=== PATIENT | female | born 1960 | race Caucasian/White ===

== ENCOUNTER → 2016-06-03 | Outpatient (CLI) | payer OTHER ==
[~2016-06-03] MED LIST: ASPEC325 PO; ISOS30TA3 PO; METO50TA7 PO; NTRGSL/4; SIMV40TA2 PO
--- NOTE | 2016-06-03 15:30 | MAMMOGRAPHY REPORT ---
BILATERAL DIGITAL SCREENING MAMMOGRAM TOMOSYNTHESIS WITH CAD: 06/03/2016 CLINICAL HISTORY: Routine screening. Patient has no complaints. TECHNIQUE: Breast tomosynthesis in addition to standard 2D mammography was performed. Current study was also evaluated with a Computer Aided Detection (CAD) system. COMPARISON: Comparison is made to exam dated: 06/29/2006. BREAST COMPOSITION: There are scattered areas of fibroglandular density in both breasts. FINDINGS: There is a lobulated 7 mm mass with partially circumscribed and partially obscured margin s seen within the right 6:00 breast, not clearly evident on the prior 2006 exam. Recommend ultrasou nd and possible additional spot compression tomosynthesis views for further evaluation. The remainder of both breasts demonstrate no suspicious masses, calcifications, or areas of architec tural distortion. Scattered bilateral benign-appearing calcifications are noted. IMPRESSION: ACR BI-RADS CATEGORY 0: INCOMPLETE EVALUATION: NEED ADDITIONAL IMAGING EVALUATION Right 6:00 breast mass, for which additional imaging evaluation is recommended. The patient will be called to schedule an appointment. Approximately 10% of breast cancers are not detected with mammography. A negative mammographic repor t should not delay biopsy if a clinically suggestive mass is present. Daisy العلي M.D. ah/:06/03/2016 15:03:30 Homemaker Companion: Bernadette REYNA(William)(M), [facility] letter sent: Addl Imaging 0 BI-RADS Code: ACR BI-RADS Category 0: Incomplete Evaluation: Need Additional Imaging Evaluation
== END | disposition home or self-care (01) ==
LOC: C.MAMM 09:45
PROVIDERS: ATTEND Family Medicine
DX: Z12.31 Encounter for screening mammogram for malignant neoplasm of breast (principal); N63 Unspecified lump in breast

== ENCOUNTER 2017-03-10 16:14 | Inpatient (IN) | payer OTHER ==
[~2017-03-10] VITALS: Ht 170.2 cm; Wt 87.7 kg
[2017-03-10 17:20] LABS: BASO % 0.4 %; BASO ABS # 0.02 K/uL (0-0.2); COMPLETE YES; EOS % 3.1 %; HEMATOCRIT 42.3 % (37-47); LYMPH % 36.7 %; LYMPH ABS # 1.78 K/uL (1.2-3.4); MEAN CELL VOLUME 95.9 fL (80-100); MEAN CORPUSCULAR HEMOGLOBIN 32.7 pg (25-34); MEAN PLATELET VOLUME 10.6 fL (7.4-10.4); MONO % 9.3 %; NEUT % 50.5 %; PLATELET COUNT 195 K/uL (130-400); RED BLOOD COUNT 4.41 M/uL (4.2-5.4); WHITE BLOOD COUNT 4.85 K/uL (4.8-10.8)
--- NOTE | 2017-03-10 17:29 | DIAGNOSTIC IMAGING REPORT ---
CHEST ONE VIEW PORTABLE HISTORY: 56 years-old Female CHEST PAIN acute atypical chest pain COMPARISON: Portable chest radiograph 06/27/2007 TECHNIQUE: Portable AP view of the chest FINDINGS: Cardiac silhouette is upper limits of normal. Atherosclerosis of the aorta. No pneumothorax, pleural effusion, focal airspace consolidation or overt pulmonary edema. Subsegmental linear left basilar opacities suggest atelectasis. Degenerative changes are seen within the shoulders and spine. Postsurgical or posttraumatic changes are seen involving the distal clavicles bilaterally. IMPRESSION: No acute cardiopulmonary process. The above report was generated using voice recognition software. It may contain grammatical, syntax or spelling errors. Electronically signed by: Aleksander Michel M.D. 03/10/2017 5:28 PM Dictated Date/Time: 03/10/2017 5:27 PM
[2017-03-10 17:34] LABS: PARTIAL THROMBOPLASTIN RATIO 0.8; PROTHROMBIN TIME (PATIENT) 10.1 SECONDS (9.0-12.0)
[2017-03-10 17:42] LABS: ALT/SGPT 25 U/L (12-78); AST/SGOT 19 U/L (15-37); BLOOD UREA NITROGEN 16 mg/dl (7-18); BUN/CREATININE RATIO 16.9 (10-20); CALCIUM 8.9 mg/dl (8.5-10.1); CARBON DIOXIDE 29 mmol/L (21-32); CHLORIDE 106 mmol/L (98-107); CREATININE 0.96 mg/dl (0.60-1.20); GLUCOSE 78 mg/dl (70-99); POTASSIUM 3.7 mmol/L (3.5-5.1); SODIUM 140 mmol/L (136-145)
--- NOTE | 2017-03-10 17:42 | EMERGENCY ROOM VISIT NOTE ---
ED Visit Note First contact with patient: 16:34 The patient was seen and examined with BILLY Mckeon. I agree with the history, physical and findings. Please see the note for disposition and details.
[2017-03-10 17:44] LABS: ALKALINE PHOSPHATASE 112 U/L (45-117); CKMB/CK RATIO 1.1 (0-3.0)
[2017-03-10] MEDS ORDERED: MoRPHine SULFATE 2 MG/ML CARP IV PRN (21:30)
[2017-03-10] MEDS ORDERED: MAGNESIUM HYDROXIDE SUSP 30 ML UDC PO PRN (21:30)
[2017-03-10] MEDS ORDERED: NITROGLYCERIN 0.4 MG SL PER TAB CHARGE SL PRN (21:30)
[2017-03-10] MEDS ORDERED: ACETAMINOPHEN 325 MG TAB PO PRN (21:30)
[2017-03-10] MEDS ORDERED: ONDANSETRON INJ 2 MG/ML 2 ML VIAL IV PRN (21:30)
[2017-03-10] MEDS ORDERED: ALUMINUM/MAGNESIUM/SIMETH (MAALOX MAX) 30 ML UDC PO PRN (21:30)
[2017-03-10] MEDS ORDERED: HEPARIN 25000 UNIT/500 ML D5W ONE (21:59)
--- NOTE | 2017-03-10 22:14 | EMERGENCY ROOM VISIT NOTE ---
History First contact with patient: 16:34 Chief Complaint: CHEST PAIN Stated Complaint: CHEST PAIN, DIZZINESS Nursing Triage Summary: pt c/o chest pain for short period of time. sob and chest palpatations. History of Present Illness The patient is a 56 year old female who presents to the Emergency Room with complaints of right-sided chest pain and shortness of breath. The patient reports that she was walking briskly at 10 AM this morning when she developed this discomfort. The patient reports that she then stopped to rest, and reported that the pain resolved within 3-5 minutes, but still had shortness of breath. After her pain resolved, she elects to go up and down steps to see if it made a difference, and again caused worsening chest discomfort and shortness of breath that improved with rest again. The patient has had a prior history of unstable angina. She was seen in our facility in July 2008 when she underwent a cardiac catheterization that was abnormal. She was seen by Dr. Nolan during that admission, and had an outpatient imaging test and stress test performed that were both normal. The patient reports that approximately one year later, she had a syncopal episode while flying, however her workup at that time was also normal. She otherwise denies any significant symptoms since that time. The patient reports that she has lost a lot of weight and has been trying to remain active and healthy. The patient denies any recent upper respiratory infections, sore throat or cough. The pain does not radiate into the neck, back or abdomen. She reports that her chest pain 7 years ago with left-sided. She does have a strong family history of coronary artery disease. She currently denies any chest pain on my exam. She also denied any nausea or diaphoresis with her episodes of chest pain. Review of Systems HEENT: Denies dizziness, visual problems, hearing loss, tinnitus. Denies difficulty swallowing or oral lesions. PULMONARY: Denies cough, sputum production or hemoptysis. CARDIOVASCULAR: Denies palpitations, dyspnea on exertion, orthopnea or peripheral edema. Otherwise see history of present illness. GASTROINTESTINAL: Denies diarrhea, constipation, nausea, vomiting, or abdominal pain. GENITOURINARY: Denies dysuria, frequency, urgency or nocturia. NEUROLOGIC: Denies history of epilepsy, CVA, TIA or chronic headaches. MUSCULOSKELETAL: Denies history of joint tenderness/swelling. SKIN: Denies rashes or lesions. PSYCHIATRIC: Denies history of depression or mental illness. ENDOCRINE: Denies history of diabetes or thyroid disorders. Past Medical/Surgical History Medical Problems: (1) Chest pain (2) Coronary Atherosclerosis Of [place] Coronary Vessel (3) History Of Tobacco Use (4) Hypercholesterolemia (5) Hypertension (6) Lumbago (7) Metrorrhagia Surgical Problems: (1) History of cardiac catheterization Family History FH: coronary artery disease FH: myocardial infarction Peripheral vascular disease Social History Smoking Status: Former Smoker Alcohol Use: occasionally Marital Status: Housing Status: lives with family Occupation Status: employed Current/Historical Medications No Active Prescriptions or Reported Meds Physical Exam Vital Signs Date Time Temp Pulse Resp B/P (MAP) Pulse Ox O2 Delivery O2 Flow Rate FiO2 03/10/17 22:02 69 16 139/97 98 03/10/17 19:45 68 20 03/10/17 19:30 67 23 03/10/17 19:15 68 17 03/10/17 19:00 61 19 03/10/17 18:08 68 18 158/78 99 Room Air 03/10/17 17:12 97 Room Air 03/10/17 17:12 97 Room Air 03/10/17 16:40 62 03/10/17 16:32 99 Room Air 03/10/17 16:16 36.4 63 18 169/100 99 Room Air Physical Exam CONSTITUTIONAL: Healthy and well nourished. Alert and oriented X 3 with positive affect. Patient does not appear in any acute distress on exam. HEENT: Normocephalic, atraumatic. Pupils equal, round and reactive. NECK: Full active range of motion without discomfort. No JVD or carotid bruits noted. RESPIRATORY: Clear to auscultation bilaterally with no wheezing, crackles, rhonchi or stridor. CARDIOVASCULAR: Regular rate and rhythm with no murmurs, rubs or gallops. GASTROINTESTINAL: Bowel sounds present in all quadrants. Soft and nontender to palpation. MUSCULOSKELETAL: Full range of motion of all joints without discomfort. No tenderness to palpation over the anterior chest wall or costochondral joints. INTEGUMENTARY: No rash or other significant dermatologic conditions noted. HEMATOLOGIC: No ecchymosis or petechiae noted. NEUROLOGIC: No focal neurologic deficits noted. Medical Decision & Procedures ER Provider Diagnostic Interpretation: My interpretation of an initial ECG shows a sinus bradycardia of [address] elevation or other conduction abnormalities. Repeat ECG approximately 3.5 hours later shows a sinus bradycardia of 58 bpm without any other acute changes noted. There is no ST elevations or depressions noted on either ECG. My interpretation of a portable chest x-ray does not show any consolidations, pneumothorax or cardiac prominence. Radiologist report is as follows: CHEST ONE VIEW PORTABLE HISTORY: 56 years-old Female CHEST PAIN acute atypical chest pain COMPARISON: Portable chest radiograph 06/27/2007 TECHNIQUE: Portable AP view of the chest FINDINGS: Cardiac silhouette is upper limits of normal. Atherosclerosis of the aorta. No pneumothorax, pleural effusion, focal airspace consolidation or overt pulmonary edema. Subsegmental linear left basilar opacities suggest atelectasis. Degenerative changes are seen within the shoulders and spine. Postsurgical or posttraumatic changes are seen involving the distal clavicles bilaterally. IMPRESSION: No acute cardiopulmonary process. Laboratory Results 03/10/17 17:10 Red Blood Count 4.41, Mean Corpuscular Volume 95.9, Mean Corpuscular Hemoglobin 32.7, Mean Corpuscular Hemoglobin Concent 34.0, Mean Platelet Volume 10.6, Neutrophils (%) (Auto) 50.5, Lymphocytes (%) (Auto) 36.7, Monocytes (%) (Auto) 9.3, Eosinophils (%) (Auto) 3.1, Basophils (%) (Auto) 0.4, Neutrophils # (Auto) 2.45, Lymphocytes # (Auto) 1.78, Monocytes # (Auto) 0.45, Eosinophils # (Auto) 0.15, Basophils # (Auto) 0.02 03/10/17 17:10 Test 03/10/17 17:10 03/10/17 19:04 White Blood Count 4.85 K/uL (4.8-10.8) Red Blood Count 4.41 M/uL (4.2-5.4) Hemoglobin 14.4 g/dL (12.0-16.0) Hematocrit 42.3 % (37-47) Mean Corpuscular Volume 95.9 fL (80-100) Mean Corpuscular Hemoglobin 32.7 pg (25-34) Mean Corpuscular Hemoglobin Concent 34.0 g/dl (32-36) Platelet Count 195 K/uL (130-400) Mean Platelet Volume 10.6 fL (7.4-10.4) Neutrophils (%) (Auto) 50.5 % Lymphocytes (%) (Auto) 36.7 % Monocytes (%) (Auto) 9.3 % Eosinophils (%) (Auto) 3.1 % Basophils (%) (Auto) 0.4 % Neutrophils # (Auto) 2.45 K/uL (1.4-6.5) Lymphocytes # (Auto) 1.78 K/uL (1.2-3.4) Monocytes # (Auto) 0.45 K/uL (0.11-0.59) Eosinophils # (Auto) 0.15 K/uL (0-0.5) Basophils # (Auto) 0.02 K/uL (0-0.2) RDW Standard Deviation 44.2 fL (36.4-46.3) RDW Coefficient of Variation 12.7 % (11.5-14.5) Immature Granulocyte % (Auto) 0.0 % Immature Granulocyte # (Auto) 0.00 K/uL (0.00-0.02) Prothrombin Time 10.1 SECONDS (9.0-12.0) Prothromb Time International Ratio 1.0 (0.9-1.1) Activated Partial Thromboplast Time 21.9 SECONDS (21.0-31.0) Partial Thromboplastin Ratio 0.8 D-Dimer 380 ug/L FEU (0-500) Anion Gap 5.0 mmol/L (3-11) Est Creatinine Clear Calc Drug Dose 73.9 ml/min Estimated GFR () 76.1 Estimated GFR (Non- 65.7 BUN/Creatinine Ratio 16.9 (10-20) Calcium Level 8.9 mg/dl (8.5-10.1) Total Bilirubin 0.4 mg/dl (0.2-1) Direct Bilirubin mg/dl (0-0.2) Aspartate Amino Transf (AST/SGOT) 19 U/L (15-37) Alanine Aminotransferase (ALT/SGPT) 25 U/L (12-78) Alkaline Phosphatase 112 U/L (45-117) Total Creatine Kinase 62 U/L (26-192) Creatine Kinase MB 0.7 ng/ml (0.5-3.6) Creatine Kinase MB Ratio 1.1 (0-3.0) Troponin I < 0.015 ng/ml (0-0.045) Total Protein 7.2 gm/dl (6.4-8.2) Albumin 3.4 gm/dl (3.4-5.0) Lipase 198 U/L (73-393) Chemistry Specimen Hemolysis Bedside Troponin I < 0.030 ng/ml (0-0.045) The above labs were reviewed. Repeat troponin 2 were normal. D-dimer was normal. Remaining labs are also grossly normal. ED Course Patient history and physical exam were performed. Nurse's notes were reviewed. Vital signs were reviewed, showing an elevated blood pressure 169/100. O2 saturation, heart rate and respiratory rate are normal. The patient denied any pain on my exam, but did complain of mild persistent shortness of breath. IV access was established, and labs were drawn. ECG and portable chest x-ray were normal. Review of labs shows no acute findings. Initial troponin and d-dimer were normal. A repeat d-dimer at 90 minutes was normal. There was a delay of approximately 3.5 hours until her next ECG was performed to show no acute changes. The patient did complain of some mild chest pressure on final exam, but refused nitroglycerin throughout her stay as it causes headaches. The patient's case was further discussed with Dr. Valencia, ED attending physician, because the patient's symptoms were exacerbated with strenuous activities, concern for unstable angina was discussed with the patient. She does have a prior catheterization showing notable coronary artery disease. We did suggest cardiology follow-up, and the patient was in agreement. The case was further discussed with Dr. Leonardo, hospitalist with [facility]. Please see his dictation and cardiology dictation for further treatment and final disposition. Medical Decision She presents with chest pain and shortness of breath that was worsened with exertion, relieved with rest. The patient has a known history of coronary artery disease with prior heart catheterization. The patient did not require any stenting with her last catheterization procedure. Chest x-ray is not suggestive of pneumonia or pneumothorax. D-dimer is also normal, therefore I do not feel the pulmonary embolus is likely. [place] Drug Monitoring Program Search Results: patient reviewed within database Medication Reconcilliation Current Medication List: was personally reviewed by me Blood Pressure Screening Patient's blood pressure: Normal blood pressure Impression Primary Impression: Unstable angina Additional Impression: History of left heart catheterization Departure Information Prescriptions No Active Prescriptions or Reported Meds Referrals Nahid Dean M.D. (PCP) Patient Instructions My [facility] Problem Qualifiers
[2017-03-10 22:37] VITALS: BP 159/84; PULSE 75; TEMP 36.8; O2SAT 98; Ht 170.2 cm; Wt 87.7 kg
--- NOTE | 2017-03-11 00:19 | History and Physical ---
History & Physical Date & Time of Service: Mar 10, 2017 at 2230 Chief Complaint: Chest Pain, Family History Of Premature Cad Primary Care Physician: Nahid Dean M.D. History of Present Illness Source: patient, hospital records This is a 56 yo f with a significant past family history for premature CAD that is presenting to us with intermittent chest pain/ palpitations throughout the day today. The patient states that this morning she started to suffer from intermittent chest pain which was substernal and minimally radiated to the right chest. It was a 5/10 when it occurred and was not associated with any specific movement or exertion. It was also self resolving within 15-20 minutes. She states that she would test herself walking up a flight of stairs and she would feel very SOB and palpitations so she was concerned because of her family history. Her mother and aunt both passed < 45 yo with an [place] and multiple sisters younger than her have required stents. Her last stress test was > 5 years ago and she had a cath which did show some blockage > 8 years ago but none requiring stents. She admits to not following up regularly for heart examinations. Homocysteine level in 2008 was normal range. Not on estrogen, no history of dvt/PE, no family history of this and no recent long trips in car/ plane. Family History FH: coronary artery disease FH: myocardial infarction Peripheral vascular disease Premature CAD Social History Smoking Status: Former Smoker Smokeless Tobacco Use: No Alcohol Use: none Marital Status: Housing status: lives with family Occupational Status: employed Immunizations History of Influenza Vaccine: No History of Tetanus Vaccine?: Yes Tetanus Immunization Date: August 09, 2004 History of Pneumococcal: No History of Hepatitis B Vaccine: Unknown Multi-Drug Resistant Organisms History of MDRO: No Allergies Coded Allergies: Bupropion (Verified Adverse Reaction, Unknown, INTOLERANT, 05/03/09) Venlafaxine (Verified Adverse Reaction, Unknown, INTOLERANT, 05/03/09) Home Medications No Active Prescriptions or Reported Meds Review of Systems Constitutional: No fever, No chills, No sweats Eyes: No worsening of vision ENT: No hearing loss Respiratory: + dyspnea on exertion, No cough, No sputum, No wheezing, No shortness of breath, No dyspnea at rest Cardiovascular: + chest pain, + palpitations Abdomen: No pain, No nausea, No vomiting Musculoskeletal: No joint pain, No muscle pain Genitourinary - Female: No dysuria, No hematuria Neurologic: No weakness, No numbness/tingling, No balance problems Psychiatric: No depression symptoms Endocrine: No fatigue Hematologic / Lymphatic: No abnormal bleeding/bruising Integumentary: No rash Physical Exam Vital Signs Date Time Temp Pulse Resp B/P (MAP) Pulse Ox O2 Delivery O2 Flow Rate FiO2 03/10/17 22:37 36.8 75 22 159/84 98 Room Air 03/10/17 22:02 69 16 139/97 98 03/10/17 19:45 68 20 03/10/17 19:30 67 23 03/10/17 19:15 68 17 03/10/17 19:00 61 19 03/10/17 18:08 68 18 158/78 99 Room Air 03/10/17 17:12 97 Room Air 03/10/17 17:12 97 Room Air 03/10/17 16:40 62 03/10/17 16:32 99 Room Air 03/10/17 16:16 36.4 63 18 169/100 99 Room Air General Appearance: no apparent distress Head: normocephalic, atraumatic Eyes: normal inspection ENT: normal ENT inspection Neck: supple Respiratory/Chest: normal breath sounds, no respiratory distress, no accessory muscle use Cardiovascular: regular rate, rhythm, no murmur, normal peripheral pulses, + pertinent finding (not reproducible with palpation) Abdomen/GI: normal bowel sounds, non tender, soft Back: normal inspection, no CVA tenderness Extremities/Musculoskelatal: no calf tenderness, no pedal edema, normal range of motion Neurologic/Psych: alert, normal mood/affect, oriented x 3 Skin: normal color, warm/dry, no rash Lymphatic: no adenopathy Diagnostics Laboratory Results Results Past 24 Hours Test 03/10/17 17:10 03/10/17 19:04 Range/Units White Blood Count 4.85 4.8-10.8 K/uL Red Blood Count 4.41 4.2-5.4 M/uL Hemoglobin 14.4 12.0-16.0 g/dL Hematocrit 42.3 37-47 % Mean Corpuscular Volume 95.9 80-100 fL Mean Corpuscular Hemoglobin 32.7 25-34 pg Mean Corpuscular Hemoglobin Concent 34.0 32-36 g/dl Platelet Count 195 130-400 K/uL Mean Platelet Volume 10.6 7.4-10.4 fL Neutrophils (%) (Auto) 50.5 % Lymphocytes (%) (Auto) 36.7 % Monocytes (%) (Auto) 9.3 % Eosinophils (%) (Auto) 3.1 % Basophils (%) (Auto) 0.4 % Neutrophils # (Auto) 2.45 1.4-6.5 K/uL Lymphocytes # (Auto) 1.78 1.2-3.4 K/uL Monocytes # (Auto) 0.45 0.11-0.59 K/uL Eosinophils # (Auto) 0.15 0-0.5 K/uL Basophils # (Auto) 0.02 0-0.2 K/uL RDW Standard Deviation 44.2 36.4-46.3 fL RDW Coefficient of Variation 12.7 11.5-14.5 % Immature Granulocyte % (Auto) 0.0 % Immature Granulocyte # (Auto) 0.00 0.00-0.02 K/uL Prothrombin Time 10.1 9.0-12.0 SECONDS Prothromb Time International Ratio 1.0 0.9-1.1 Activated Partial Thromboplast Time 21.9 21.0-31.0 SECONDS Partial Thromboplastin Ratio 0.8 D-Dimer 380 0-500 ug/L FEU Sodium Level 140 136-145 mmol/L Potassium Level 3.7 3.5-5.1 mmol/L Chloride Level 106 98-107 mmol/L Carbon Dioxide Level 29 21-32 mmol/L Anion Gap 5.0 3-11 mmol/L Blood Urea Nitrogen 16 7-18 mg/dl Creatinine 0.96 0.60-1.20 mg/dl Est Creatinine Clear Calc Drug Dose 73.9 ml/min Estimated GFR () 76.1 Estimated GFR (Non- 65.7 BUN/Creatinine Ratio 16.9 10-20 Random Glucose 78 70-99 mg/dl Calcium Level 8.9 8.5-10.1 mg/dl Total Bilirubin 0.4 0.2-1 mg/dl Direct Bilirubin 0-0.2 mg/dl Aspartate Amino Transf (AST/SGOT) 19 15-37 U/L Alanine Aminotransferase (ALT/SGPT) 25 12-78 U/L Alkaline Phosphatase 112 45-117 U/L Total Creatine Kinase 62 26-192 U/L Creatine Kinase MB 0.7 0.5-3.6 ng/ml Creatine Kinase MB Ratio 1.1 0-3.0 Troponin I < 0.015 0-0.045 ng/ml Total Protein 7.2 6.4-8.2 gm/dl Albumin 3.4 3.4-5.0 gm/dl Lipase 198 73-393 U/L Chemistry Specimen Hemolysis Bedside Troponin I < 0.030 0-0.045 ng/ml Diagnostic Radiology [~ rep ct add3]] CHEST ONE VIEW PORTABLE HISTORY: 56 years-old Female CHEST PAIN acute atypical chest pain COMPARISON: Portable chest radiograph 06/27/2007 TECHNIQUE: Portable AP view of the chest FINDINGS: Cardiac silhouette is upper limits of normal. Atherosclerosis of the aorta. No pneumothorax, pleural effusion, focal airspace consolidation or overt pulmonary edema. Subsegmental linear left basilar opacities suggest atelectasis. Degenerative changes are seen within the shoulders and spine. Postsurgical or posttraumatic changes are seen involving the distal clavicles bilaterally. IMPRESSION: No acute cardiopulmonary process. EKG Sinus bradycardia Possible Left atrial enlargement Borderline ECG When compared with ECG of 23-JUL-2015 16:21, No significant change was found HR 58 Impression Assessment and Plan This is a 56 yo f with a history of premature CAD in family and intermittent chest pain for the last 24 hours Chest pain NYD - considering the history the patient will be placed on heparin drip - Troponin trend - Echo in am - Tele admission - FLP in am/ HBA1C for assessment fo ASCVD DVT Prophylaxis SCD, Heparin drip Attending addendum: I have physically seen this patient, have supervised the medical residents activities, and agree with the H&P unless as otherwise noted. Assessment and Plan: Precordial chest pain/history cardiac catheterization 2008/mild CAD/very strong family history of CAD-- The patient will be admitted to telemetry for serial cardiac enzymes, cardiac rhythm monitoring and a 2-D echocardiogram with Dopplers. Check fasting lipid panel and hemoglobin A1c Heparin drip standard concentration without bolus per protocol Level of Care Telemetry Advanced Directives Existing Living Will: Yes Existing Power of Body Mechanic: No Resuscitation Status FULL RESUSCITATION VTE Prophylaxis VTE Risk Assessment Done? Y/N: Yes Risk Level: Moderate Given or contraindicated: Other Anticoagulation Social Service Consult None Apply Note Total Time: Critical Care 30 - 74 minutes Additional Copies To Nahid Dean M.D.
[2017-03-11] MEDS ORDERED: HEPARIN 25,000 UNIT/500ML D5W 500 ML IV PRN (00:45)
[2017-03-11 04:10] LABS: PARTIAL THROMBOPLASTIN RATIO 1.6
[2017-03-11] MEDS ORDERED: HEPARIN IV BOLUS 3,000 UNIT in SYRINGE 0 ML IV ONE (04:30)
[2017-03-11 04:44] VITALS: BP 112/67; PULSE 60; TEMP 36.8; O2SAT 97
[2017-03-11 07:23] LABS: CHOLESTEROL/HDL RATIO 3.1
[2017-03-11 07:33] LABS: ESTIMATED AVERAGE GLUCOSE 111 mg/dl; HA1C FLAG Normal (Normal)
[2017-03-11 07:36] VITALS: BP 109/71; PULSE 58; TEMP 36.8; O2SAT 96
[2017-03-11] MEDS ORDERED: METOPROLOL TARTRATE 1 MG/ML VIAL ONE (10:18)
[2017-03-11] MEDS ORDERED: METOPROLOL TARTRATE 1 MG/ML VIAL IV ONE (10:30)
[2017-03-11] MEDS ORDERED: NURSING VERBAL MED ORDER ONE (12:15)
[2017-03-11] MEDS ORDERED: INFLUENZA ADMINISTRATION CHARGE ONE (13:15)
[2017-03-11] MEDS ORDERED: INFLUENZA VIRUS QUAD VACCINE 0.5 ML SYR IM. ONE (13:15)
--- NOTE | 2017-03-11 13:33 | Discharge Instructions ---
Discharge Instructions Date of Service Mar 11, 2017. Admission Reason for Admission: Chest Pain, Family History Of Premature Cad Discharge Discharge Diagnosis / Problem: Chest Pain Discharge Goals Goal(s): Decrease discomfort, Improve disease control Activity Recommendations Activity Limitations: resume your previous activity . Instructions / Follow-Up Instructions / Follow-Up You were admitted to [facility] due to chest pain and feeling short of breath. We checked your troponin level, which measures damage to your heart, and that was normal. We also did a couple of EKGs (electrical tracing of your heart) which were normal. In addition, you also had a stress test done which did not show any abnormalities. Although this episode of chest pain was likely not related to your heart, you are still at advanced risk for heart disease given that your last heart catheterization in 2008 showed blockages in the blood vessels supplying your heart. Given this, we strongly recommend you take these medications to prevent the risk of your heart disease worsenin) aspirin 81mg daily 2) atorvastatin 40mg daily (cholesterol lowering) 3) metoprolol succinate 25mg daily (lowers your blood pressure and heart rate) Please follow up with your primary care physician, and also return to the emergency department if you develop worsening chest pain, shortness of breath, or feel that your heartbeat is irregular. Current Hospital Diet Patient's current hospital diet: AHA Diet (Heart Healthy) Discharge Diet Recommended Diet: AHA Diet (Heart Healthy) Procedures Procedures Performed: Stress Test Pending Studies Studies pending at discharge: no Laboratory Results Hemoglobin A1c Test 03/11/17 06:30 Range/Units Estimated Average Glucose 111 mg/dl Hemoglobin A1c 5.5 4.5-5.6 % Lipid Panel Test 03/11/17 06:30 Range/Units Triglycerides Level 58 0-150 mg/dl Cholesterol Level 180 0-200 mg/dl HDL Cholesterol 58 mg/dl Cholesterol/HDL Ratio 3.1 LDL Cholesterol, Calculated 110 mg/dl Medical Emergencies . Who to Call and When: Medical Emergencies: If at any time you feel your situation is an emergency, please call 911 immediately. . Non-Emergent Contact Non-Emergency issues call your: Primary Care Provider . . "Provider Documentation" section prepared by Jericho Murray. . VTE Core Measure Inpt VTE Proph given/why not?: Other Anticoagulation
[2017-03-11] MEDS ORDERED: METO-478 PO (13:39)
[2017-03-11] MEDS ORDERED: LPT40 PO (13:39)
[2017-03-11] MEDS ORDERED: ASPI81TA28 PO (13:39)
--- NOTE | 2017-03-11 13:57 | Discharge Summary ---
Discharge Summary Date of Service Mar 11, 2017. Discharge Summary Admission Date: Mar 10, 2017 at 21:31 Discharge Date: Mar 11, 2017 Discharge Disposition: Home Principal Diagnosis: Chest Pain Immunizations: Have You Had Influenza Vaccine: No History of Tetanus Vaccine?: Yes Tetanus Immunization Date: August 09, 2004 History of Pneumococcal: No History of Hepatitis B Vaccine: Unknown Procedures: CHEST ONE VIEW PORTABLE HISTORY: 56 years-old Female CHEST PAIN acute atypical chest pain COMPARISON: Portable chest radiograph 06/27/2007 TECHNIQUE: Portable AP view of the chest FINDINGS: Cardiac silhouette is upper limits of normal. Atherosclerosis of the aorta. No pneumothorax, pleural effusion, focal airspace consolidation or overt pulmonary edema. Subsegmental linear left basilar opacities suggest atelectasis. Degenerative changes are seen within the shoulders and spine. Postsurgical or posttraumatic changes are seen involving the distal clavicles bilaterally. IMPRESSION: No acute cardiopulmonary process. Stress ECHO Negative stress echo for ischemia at 76 % MPHR; cannot rule out ischemic changes at faster heart rates. Target heart rate not attained. Nondiagnostic exercise ECG as target heart rate was not attained. Appropriate blood pressure response to exercise. No arrhythmia. Study terminated due to fatigue. No chest pain reported. Good exercise tolerance. Technically difficult study, enhanced with IV Definity. Echo: 1. Normal left ventricular size and systolic function. EF 60-65%. No regional wall motion abnormalities. No left ventricular hypertrophy. Type 1 diastolic dysfunction. 2. No significant valvular abnormalities visualized. 3. Normal estimated right ventricular systolic pressure. Medication Reconciliation New Medications: Aspirin (Aspirin Ec) 81 Mg Tab 81 MG PO DAILY for 30 Days, #30 TABS 3 Refills Atorvastatin (Atorvastatin Calcium) 40 Mg Tab 1 TAB PO DAILY for 30 Days, #30 TABS 3 Refills Metoprolol Succinate (Toprol Xl) 25 Mg Tab 25 MG PO DAILY, #30 TAB 3 Refills Discharge Exam Ms. Franz reports she feels well at the current time. Her last episode of chest pain was last night whilst in the emergency department, and she states this occurred while she was sitting down and they told her she was going to be admitted. She states she has been having intermittent chest pain since yesterday morning, occurring in the center of her chest, slightly towards the right. She states the pain is a pressure-like sensation, 4/10 in severity, and associated with shortness of breath, but not diaphoresis or radiation. She states when the pain comes on, it lasts for a couple of minutes and then resolves spontaneously. Of note, she was seen later in the day after her stress test, and reported multiple episodes of similar type of chest pain in the center of her chest. Review of Systems: Constitutional: No fever, No chills Respiratory: + shortness of breath, No cough, No sputum, No wheezing Cardiovascular: + chest pain, No orthopnea, No PND, No edema Abdomen: No pain, No nausea, No vomiting, No diarrhea, No constipation Physical Exam: General Appearance: WD/WN, no apparent distress Respiratory/Chest: chest non-tender, lungs clear, normal breath sounds, no respiratory distress, no accessory muscle use Cardiovascular: regular rate, rhythm, no edema, no gallop, no JVD, no murmur , normal peripheral pulses Abdomen / GI: normal bowel sounds, non tender, soft, no organomegaly, no pulsatile mass Hospital Course Ms. Franz presented to [facility] with chest pain and shortness of breath. Below is her hospital course: Chest pain, Atypical - placed on heparin drip initially for concern of unstable angina due to having 'known high grade ostial occlusion' on previous [facility] - troponins negative, EKGs negative for ischemic changes - CXR with no abnormalities (see above) - Underwent stress echo which came back normal - FLP = TG 58, Chol 180, LDL 110, HDL 58 - HbA1c = 5.5 - given her personal history of coronary artery disease and family history of premature CAD, she was placed on daily aspirin, 40mg of atorvastatin and 25mg of metoprolol - this was discussed extensively with her as she normally does not like to take medications, prescriptions were provided to her and she was counselled on following up with her PCP Total Time Spent: Greater than 30 minutes This includes examination of the patient, discharge planning, medication reconciliation, and communication with other providers. Discharge Instructions Please refer to the electronic Patient Visit Report (Discharge Instructions) for additional information. Additional Copies To Nahid Dean M.D. Resident Tracking Resident Involvement: Resident Care Provided Care Provided: Adult Hospital Medicine Reviewed: Pt Seen/Exam by Me History no further chest pain, palpitation, dizziness, shortness of breath Constitutional: denies: fever Respiratory: negative: short of breath Cardiovascular: denies chest pain General Appearance: no apparent distress Respiratory: lungs clear, no respiratory distress Cardiovascular: regular rate, rhythm Neurologic/Psychiatric: alert, oriented x 3 Skin Characteristics: warm/dry Assessment/Plan Resident Physician Supervision Note: I independently interviewed and examined the patient and verified the bishop history and physical, reviewed labs and image studies, discussed the case with the resident Dr. Murray and agree with the findings and care plan.
[2017-03-11] MEDS ORDERED: GI COCKTAIL PO ONE (14:00)
--- NOTE | 2017-03-11 14:16 | EXERCISE STRESS ECHO ---
*NOTICE TO RECEIVING LIBERTARIAN AGENCY This information is strictly Confidential and protected under [place] law. [place] law prohibits you from making any further disclosure of this information unless further disclosure is expressly permitted by the written consent of the person to whom it pertains or is authorized by law. A general authorization for the release of medical or other information is not sufficient for this purpose. Hospital accepts no responsibility if the information is made available to any other person, INCLUDING THE PATIENT. Interpretation Summary * Name: AANBELLA ALANIZ Study Date: 03/11/2017 10:26 AM BP: 136/84 mmHg * Patient Location: .2E\S\E208\S\1 HR: 52 * : 1960 (M/d/yyyy) Gender: Female Height: 67 in * Age: 56 yrs Ethnicity: [place] Weight: 193 lb * Ordering Physician: Jericho Murray * Referring Physician: NATANAEL * Performed By: Nathalie Armas RDCS * * Reason For Study: CHEST PAIN * BSA: 2.0 m2 * -- Conclusions -- * Stress Echo: * 1. Negative stress echo for ischemia at 76 % MPHR; cannot rule out ischemic changes at faster heart rates. Target heart rate not attained. * 2. Nondiagnostic exercise ECG as target heart rate was not attained. * 3. Appropriate blood pressure response to exercise. * 4. No arrhythmia. * 5. Study terminated due to fatigue. No chest pain reported. * 6. Good exercise tolerance. * 7. Technically difficult study, enhanced with IV Definity. * Echo: * 1. Normal left ventricular size and systolic function. EF 60-65%. No regional wall motion abnormalities. No left ventricular hypertrophy. Type 1 diastolic dysfunction. * 2. No significant valvular abnormalities visualized. * 3. Normal estimated right ventricular systolic pressure. * 4. No prior study available for comparison. Procedure Details * ECHOEX, CPT #02319 * A contrast injection of Definity was performed to improve assessment of LV function. * Contrast was injected into an intravenous site in the left arm. * One vial of Definity ultrasound contrast was diluted in normal saline to a total volume of 10 ml. A total of '4' ml of solution was administered during imaging. * Lot # [id number] of Definity utilized for procedure. * Expiration date MAY 17. * The attending nurse who injected the contrast agent was BINH BRICENO. Left Ventricle * The left ventricle is normal in size. * There is normal left ventricular wall thickness. * Ejection Fraction = 60-65%. * Left ventricular systolic function is normal. * The left ventricular ejection fraction increases normally with stress. The left ventricular end-systolic cavity size reduces post-stress (normal response). The left ventricular wall motion with stress is normal. * Resting wall motion: Normal. Stress wall motion: Appropriate increase in Left ventricular systolic function and decrease in cavity size. No stress induced segmental wall motion abnormalities. * No regional wall motion abnormalities noted. Right Ventricle * The right ventricle is normal in size and function. * The right ventricular systolic function is normal as assessed by tricuspid annular plane systolic excursion (TAPSE) (normal >1.5 cm). Atria * The left atrial size is normal. * Right atrial size is normal. * There is no evidence of atrial septal defect, but resolution does not allow assessment for a patent foramen ovale. Mitral Valve * The mitral valve leaflets appear normal. There is no evidence of stenosis, fluttering, or prolapse. * There is trace mitral regurgitation. Tricuspid Valve * The tricuspid valve is not well visualized, but is grossly normal. * There is no tricuspid stenosis. * There is trace tricuspid regurgitation. Aortic Valve * The aortic valve is trileaflet. * No hemodynamically significant valvular aortic stenosis. * No aortic regurgitation is present. Pulmonic Valve * The pulmonary valve is inadequately visualized, but the Doppler data is adequate for interpretation. * There is no significant pulmonary regurgitation. Great Vessels * Normal IVC size and inspiratory collapse. Pericardium * There is no pericardial effusion. Stress Parameters * Sinus bradycardia at 55 bpm. * Stress ECG: No ST changes. No arrhythmias. * No arrhythmia were noted with stress. * The stress portion of this study was personally supervised by the undersigned interpreting physician. * Rest heart rate was '52' BPM. * Rest blood pressure was '136/84' * Maximum heart rate achieved was 125 bpm. * Maximum heart rate was 76 % of maximum age-predicted heart rate. * Maximum blood pressure was '158/80' * Total exercise time was '8:14' * Maximum exercise MET level achieved was '10.10' METS * Maximum treadmill speed was '3.40' miles per hour. * Maximum treadmill elevation was '14.00'% grade. * Exercise was terminated due to 'fatigue' * Normal blood pressure response to exercise. MMode 2D Measurements and Calculations IVSd 1.0 cm IVSs 1.4 cm LVIDd 4.5 cm LVIDs 2.9 cm LVPWd 0.95 cm LVPWs 1.6 cm IVS/LVPW 1.1 FS 35.5 % EDV(Teich) 91.6 ml ESV(Teich) 31.9 ml EF(Teich) 65.1 % EDV(cubed) 90.0 ml ESV(cubed) 24.1 ml EF(cubed) 73.2 % % IVS thick 40.7 % % LVPW thick 67.1 % LV mass(C)d 149.3 grams LV mass(C)dI 74.9 grams/m\S\2 LV mass(C)s 152.5 grams LV mass(C)sI 76.6 grams/m\S\2 SV(Teich) 59.6 ml SI(Teich) 29.9 ml/m\S\2 SV(cubed) 65.9 ml SI(cubed) 33.1 ml/m\S\2 Ao root diam 2.9 cm Ao root area 6.4 cm\S\2 LA dimension 3.5 cm LA/Ao 1.2 LVAd ap4 26.7 cm\S\2 LVLd ap4 7.9 cm EDV(MOD-sp4) 73.8 ml EDV(sp4-el) 76.9 ml LVAs ap4 14.8 cm\S\2 LVLs ap4 6.7 cm ESV(MOD-sp4) 28.6 ml ESV(sp4-el) 28.0 ml EF(MOD-sp4) 61.2 % EF(sp4-el) 63.6 % LVAd ap2 28.6 cm\S\2 LVLd ap2 8.6 cm EDV(MOD-sp2) 77.1 ml EDV(sp2-el) 80.2 ml LVAs ap2 14.9 cm\S\2 LVLs ap2 6.9 cm ESV(MOD-sp2) 28.2 ml ESV(sp2-el) 27.3 ml EF(MOD-sp2) 63.4 % EF(sp2-el) 65.9 % LVLd %diff 8.8 % EDV(MOD-bp) 80.2 ml LVLs %diff 2.7 % ESV(MOD-bp) 28.7 ml EF(MOD-bp) 64.2 % SV(MOD-sp4) 45.2 ml SI(MOD-sp4) 22.7 ml/m\S\2 SV(MOD-sp2) 48.8 ml SI(MOD-sp2) 24.5 ml/m\S\2 SV(MOD-bp) 51.5 ml SI(MOD-bp) 25.9 ml/m\S\2 SV(sp4-el) 48.9 ml SI(sp4-el) 24.5 ml/m\S\2 SV(sp2-el) 52.8 ml SI(sp2-el) 26.5 ml/m\S\2 Doppler Measurements and Calculations MV E max ruth ann 77.6 cm/sec MV A max ruth ann 84.4 cm/sec MV E/A 0.92 MV dec time 0.17 sec Ao V2 max 159.6 cm/sec Ao max PG 10.2 mmHg Ao max PG (full) 5.5 mmHg LV V1 max PG 4.6 mmHg LV V1 max 107.4 cm/sec TR max ruth ann 222.6 cm/sec RVSP(TR) 22.8 mmHg RAP systole 3.0 mmHg
[2017-03-11] MEDS ORDERED: ALUMINUM/MAGNESIUM SUSP 18 ML, LIDOCAINE HCL 2% VISCOUS SOLN 6 ML, BARCODE IDENTIFIER 1 EA PO ONE ×2 (14:30)
[2017-03-11 15:05] VITALS: BP 137/95; PULSE 75; TEMP 36.8; O2SAT 96
[2017-03-11 15:26] VITALS: BP 112/91; PULSE 57; TEMP 36.5; O2SAT 94
== END 2017-03-11 16:00 | disposition home or self-care (01) | DRG 313 ==
LOC: C.EDB 16:15 → C.2E 21:31 → ENRESERV 21:42
PROVIDERS: ADMIT Hospitalist; ATTEND Family Medicine
DX: R07.89 Other chest pain (principal); R06.02 Shortness of breath; I25.10 Atherosclerotic heart disease of native coronary artery without angina pectoris; Z87.891 Personal history of nicotine dependence; Z82.49 Family history of ischemic heart disease and other diseases of the circulatory system

== ENCOUNTER → 2017-04-15 | Outpatient (CLI) | payer BC | END | disposition home or self-care (01) | LOC: C.MAMM 08:29 | DX: N63.10 Unspecified lump in the right breast, unspecified quadrant (principal) ==

== ENCOUNTER → 2017-04-30 | Outpatient (CLI) | payer OTHER, BC ==
[~2017-04-30] MED LIST changes: -ASPEC325 PO; +ASPI81TA28 PO; -ISOS30TA3 PO; +LPT40 PO; +METO-478 PO; -METO50TA7 PO; -NTRGSL/4; -SIMV40TA2 PO
== END | disposition home or self-care (01) ==
LOC: C.RDSM 16:20
PROVIDERS: ATTEND Family Medicine Sports Medicine
DX: M25.561 Pain in right knee (principal)

== ENCOUNTER → 2017-05-11 | Outpatient (CLI) | payer BC ==
--- NOTE | 2017-05-11 12:11 | DIAGNOSTIC IMAGING REPORT ---
C-SPINE ROUTINE 4 OR 5 VIEWS HISTORY: Pain NECK PAIN COMPARISON: None. FINDINGS: The cervical spine is visualized from C1 through the superior endplate of T1. There is no fracture. No subluxation. Significant degenerative disc changes throughout the entire cervical region. Prevertebral soft tissues and the atlantodens interval are intact. IMPRESSION: Considerable degenerative disc change throughout the entire cervical region. No acute process. The above report was generated using voice recognition software. It may contain grammatical, syntax or spelling errors. Electronically signed by: Vasyl Espinal M.D. 05/11/2017 12:09 PM Dictated Date/Time: 05/11/2017 12:09 PM
== END | disposition home or self-care (01) ==
LOC: C.RAD1850 11:17
PROVIDERS: ATTEND Student in an Organized Health Care Education/Training Program
DX: M54.2 Cervicalgia (principal)